=== PATIENT | female | born 1975 | race Caucasian/White ===

== ENCOUNTER 2018-01-15 15:42 | Emergency (ER) | payer BC ==
[~2018-01-15] VITALS: Ht 160 cm; Wt 81.8 kg
[2018-01-15 16:35] LABS: HEMOGLOBIN 10.2 G/DL (11.9-15.5); MCH 24.2 PG (29.0-34.0); MCV 80.8 FL (83-99); PLATELET COUNT 314 K/uL (156-360); RBC DIS.WIDTH-SD 52.3 % (39-53); RED BLOOD COUNT 4.21 M/uL (3.80-5.20); WHITE BLOOD COUNT 8.5 K/uL (4.1-10.2)
[2018-01-15 16:44] LABS: ALBUMIN 4.6 g/dL (3.2-4.8); CHLORIDE 108 mEq/L (99-109); SODIUM 142 mEq/L (136-147)
[2018-01-15 16:45] VITALS: BP 103/70
[2018-01-15 16:46] LABS: GLUCOSE 73 mg/dL (70-99); TOTAL PROTEIN 7.1 g/dL (6.4-8.3)
[2018-01-15 16:48] LABS: TOTAL BILIRUBIN 0.3 mg/dL (0.0-1.0)
[2018-01-15 16:50] LABS: ALKALINE PHOSPHATASE 90 IU/L (3-129); CREATININE 0.9 mg/dL (0.6-1.3)
[2018-01-15 16:51] LABS: AST (GOT) 14 IU/L (2-34); GFR ESTIMATE (CALCULATED) > 59 mL/min/; UREA NITROGEN (BUN) 11 mg/dL (9-23)
[2018-01-15 16:53] LABS: ALT (GPT) 17 IU/L (3-49)
[2018-01-15 17:14] LABS: APPEARANCE CLEAR ((CLEAR)); BILIRUBIN NEGATIVE; BLOOD NEGATIVE; COLOR COLORLESS ((YELLOW)); GLUCOSE (STRIP) NEGATIVE; KETONES NEGATIVE; LEUKOCYTES NEGATIVE; NITRITE NEGATIVE; PROTEIN (STRIP) NEGATIVE; SPECIFIC GRAVITY 1.003 (1.000-1.030); UCUL ADDED? NO; UROBILINOGEN 0.2 MG/DL (0.2-1.0)
[2018-01-15 18:05] LABS: C-REACTIVE PROTEIN 1.9 MG/L (0-10)
[2018-01-15 18:29] LABS: AMPHETAMINE NEGATIVE (500 ng/mL); BARBITURATES PRESUMPTIVE POSITIVE (200 ng/mL); BENZODIAZEPINES NEGATIVE (150 ng/mL); BUPRENORPHINE NEGATIVE (10 ng/mL); COCAINE NEGATIVE (150 ng/mL); METHADONE NEGATIVE (200 ng/mL); METHAMPHETAMINE NEGATIVE (500 ng/mL); OPIATES (MORPHINE) NEGATIVE (100 ng/mL); OXYCODONE NEGATIVE (100 ng/mL); PHENCYCLIDINE NEGATIVE (25 ng/mL); PROPOXYPHENE NEGATIVE (300 ng/mL); THC CANNABINOIDS NEGATIVE (50 ng/mL); TRICYCLIC ANTIDEPRESSANTS NEGATIVE (300 ng/mL)
== END 2018-01-15 18:36 | disposition left against medical advice (07) ==
LOC: EME 15:42
PROVIDERS: Emergency Medicine
DX: R10.9 Unspecified abdominal pain (principal); K50.90 Crohn's disease, unspecified, without complications; M06.9 Rheumatoid arthritis, unspecified; Z90.49 Acquired absence of other specified parts of digestive tract; Z87.891 Personal history of nicotine dependence
CPT/HCPCS: 80053; 81003; 84999; 85027; 86140; 93005; 99281; 99284; J2405; J3010; J7030

== ENCOUNTER 2018-03-26 11:58 | Emergency (ER) | payer BC ==
[~2018-03-26] VITALS: Ht 160 cm; Wt 80.2 kg
[2018-03-26] MEDS ORDERED: GABAPENTIN600 MG PO (12:33)
[2018-03-26] MEDS ORDERED: EFFEXOR50 MG PO (12:33)
[2018-03-26] MEDS ORDERED: IMURAN50 MG PO (12:33)
[2018-03-26] MEDS ORDERED: ZOFRAN ODT4 MG PO (12:34)
[2018-03-26] MEDS ORDERED: WELLBUTRIN100 MG PO (12:34)
[2018-03-26] MEDS ORDERED: OMEPRAZOLE20 MG PO (12:34)
[2018-03-26 13:17] LABS: BASOPHIL (%) 0.2 % (0-1); EOSINOPHIL (%) 0.1 % (0-5); HEMOGLOBIN 10.1 G/DL (11.9-15.5); IMMATURE GRANULOCYTE (%) 0.4 % (0.0-0.7); LYMPHOCYTE (%) 16.1 % (15-42); LYMPHOCYTE COUNT 1.3 K/uL (1.0-2.8); MCH 23.9 PG (29.0-34.0); MCHC 29.7 G/DL (30.0-36.0); MCV 80.6 FL (83-99); MONOCYTE (%) 9.6 % (3-12); MONOCYTE COUNT 0.8 K/uL (0-0.8); NEUTROPHIL (%) 73.6 % (45-76); PLATELET COUNT 268 K/uL (156-360); RBC DIS.WIDTH-CV 19.4 % (11.8-14.6); RBC DIS.WIDTH-SD 55.6 % (39-53); RED BLOOD COUNT 4.22 M/uL (3.80-5.20); WHITE BLOOD COUNT 8.2 K/uL (4.1-10.2)
[2018-03-26 13:24] LABS: ALBUMIN 4.4 g/dL (3.2-4.8)
[2018-03-26 13:25] LABS: CHLORIDE 112 mEq/L (99-109); POTASSIUM 4.1 mEq/L (3.7-5.4); SODIUM 146 mEq/L (136-147)
[2018-03-26 13:27] LABS: GLUCOSE 71 mg/dL (70-99); TOTAL PROTEIN 6.8 g/dL (6.4-8.3)
[2018-03-26 13:29] LABS: TOTAL BILIRUBIN 0.2 mg/dL (0.0-1.0)
[2018-03-26 13:30] LABS: ALKALINE PHOSPHATASE 93 IU/L (3-129)
[2018-03-26 13:31] LABS: CREATININE 0.7 mg/dL (0.6-1.3); GFR ESTIMATE (CALCULATED) > 59 mL/min/
[2018-03-26 13:32] LABS: AST (GOT) 11 IU/L (2-34); UREA NITROGEN (BUN) 9 mg/dL (9-23)
[2018-03-26 13:34] LABS: ALT (GPT) 9 IU/L (3-49)
[2018-03-26 15:11] VITALS: BP 122/86
== END 2018-03-26 15:11 | disposition left against medical advice (07) ==
LOC: EME 11:58
PROVIDERS: Emergency Medicine
DX: K50.90 Crohn's disease, unspecified, without complications (principal); M06.9 Rheumatoid arthritis, unspecified; Z87.891 Personal history of nicotine dependence; Z90.710 Acquired absence of both cervix and uterus; Z90.49 Acquired absence of other specified parts of digestive tract
CPT/HCPCS: 80053; 85025; 99281; 99285; J2405; J3010; J7030

== ENCOUNTER 2018-04-07 15:58 | Observation (INO) | payer BC ==
[~2018-04-07] VITALS: Ht 160 cm; Wt 80.0 kg
[~2018-04-07 15:58] MED LIST: EFFEXOR50 MG PO; GABAPENTIN600 MG PO; IMURAN50 MG PO; OMEPRAZOLE20 MG PO; WELLBUTRIN100 MG PO; ZOFRAN ODT4 MG PO
[2018-04-07 16:56] LABS: BASOPHIL (%) 0.3 % (0-1); EOSINOPHIL (%) 1.7 % (0-5); EOSINOPHIL COUNT 0.1 K/uL (0-0.3); HEMATOCRIT 34.5 % (36.0-46.0); HEMOGLOBIN 10.4 G/DL (11.9-15.5); IMMATURE GRANULOCYTE (%) 0.4 % (0.0-0.7); LYMPHOCYTE (%) 24.9 % (15-42); LYMPHOCYTE COUNT 1.9 K/uL (1.0-2.8); MCH 24.4 PG (29.0-34.0); MCHC 30.1 G/DL (30.0-36.0); MCV 80.8 FL (83-99); MONOCYTE (%) 8.5 % (3-12); MONOCYTE COUNT 0.7 K/uL (0-0.8); NEUTROPHIL (%) 64.2 % (45-76); NEUTROPHIL COUNT 4.9 K/uL (1.8-6.4); PLATELET COUNT 317 K/uL (156-360); RBC DIS.WIDTH-CV 18.6 % (11.8-14.6); RBC DIS.WIDTH-SD 53.7 % (39-53); RED BLOOD COUNT 4.27 M/uL (3.80-5.20); WHITE BLOOD COUNT 7.7 K/uL (4.1-10.2)
[2018-04-07 17:09] LABS: ALBUMIN 4.5 g/dL (3.2-4.8); CHLORIDE 108 mEq/L (99-109); POTASSIUM 3.9 mEq/L (3.7-5.4); SODIUM 144 mEq/L (136-147)
[2018-04-07 17:12] LABS: GLUCOSE 68 mg/dL (70-99); TOTAL PROTEIN 7.4 g/dL (6.4-8.3)
[2018-04-07 17:14] LABS: TOTAL BILIRUBIN 0.3 mg/dL (0.0-1.0)
[2018-04-07 17:15] LABS: ALKALINE PHOSPHATASE 93 IU/L (3-129); CREATININE 0.7 mg/dL (0.6-1.3); GFR ESTIMATE (CALCULATED) > 59 mL/min/
[2018-04-07 17:16] LABS: UREA NITROGEN (BUN) 4 mg/dL (9-23)
[2018-04-07 17:17] LABS: AST (GOT) 18 IU/L (2-34)
[2018-04-07 17:17] LABS: APPEARANCE CLEAR ((CLEAR)); BILIRUBIN NEGATIVE; BLOOD NEGATIVE; COLOR COLORLESS ((YELLOW)); GLUCOSE (STRIP) NEGATIVE; KETONES NEGATIVE; LEUKOCYTES NEGATIVE; NITRITE NEGATIVE; PROTEIN (STRIP) NEGATIVE; SPECIFIC GRAVITY 1.002 (1.000-1.030); UCUL ADDED? NO; UROBILINOGEN 0.2 MG/DL (0.2-1.0)
[2018-04-07 17:18] LABS: ALT (GPT) 14 IU/L (3-49)
[2018-04-07 17:24] LABS: QUANTITATIVE HCG < 4.0 MIU/ML
[2018-04-07 17:50] LABS: TROP-I INTERPRETATION NEGATIVE; TROPONIN-I 0.02 ng/mL (0.0-0.30)
[2018-04-07 18:13] LABS: C-REACTIVE PROTEIN 8.3 MG/L (0-10); HDL CHOLESTEROL 46 MG/DL (Desirable>=50); LDL CHOLESTEROL 147 mg/dL (Desirable<100); NON-HDL CHOLESTEROL 195 mg/dL (Desirable<160); TOTAL CHOLESTEROL 241 mg/dL (Desirable<200); TRIGLYCERIDES 241 MG/DL (Normal: <150)
[2018-04-07] MEDS ORDERED: BENTYL20 MG PO (18:57)
[2018-04-07] MEDS ORDERED: LORTAB 10-3251 EACH PO (18:58)
[2018-04-07] MEDS ORDERED: TRAMADOL HCL50 MG PO (18:59)
[2018-04-07] MEDS ORDERED: PROMETHAZINE HC25 M1 PO (19:00)
[2018-04-07 20:35] LABS: ERTH.SED.RATE 30 MM/HR (0-20)
[2018-04-07 20:48] VITALS: BP 106/70
[2018-04-08 11:02] LABS: HEMOGLOBIN A1c (GLYCOHEMOGLOB) 5.4 % (Below 5.7)
== END 2018-04-07 21:35 | disposition left against medical advice (07) ==
LOC: EME 15:58 → EDOF 19:40 → ENRESERV 19:46 → 4SOUTH 20:53
PROVIDERS: Emergency Medicine
DX: G45.9 Transient cerebral ischemic attack, unspecified (principal); K50.90 Crohn's disease, unspecified, without complications; M79.7 Fibromyalgia; M06.9 Rheumatoid arthritis, unspecified; F41.9 Anxiety disorder, unspecified; F32.9 Major depressive disorder, single episode, unspecified; Z79.899 Other long term (current) drug therapy; Z90.49 Acquired absence of other specified parts of digestive tract; Z90.710 Acquired absence of both cervix and uterus; Z87.891 Personal history of nicotine dependence; Z88.2 Allergy status to sulfonamides; Z88.8 Allergy status to other drugs, medicaments and biological substances
CPT/HCPCS: 70450; 70486; 71046; 74177; 80053; 80061; 81003; 82272; 83036; 84484; 84702; 85025; 85651; 86140; 87177; 87329; 87493; 87506; 93005; 93880; 99281; 99285; G0378; J2405; J2765; J3010; J7030